=== PATIENT | female | born 1990 | race Caucasian/White ===

== ENCOUNTER 2017-10-06 12:12 | Emergency (ER) | payer BC ==
[2017-10-06 14:05] LABS: EGFR Non-African American 97.9 (>60)
[2017-10-06 14:28] LABS: ABS Basophils 0 10^3/ul (0-0.2); ABS Eosinophils 0.1 10^3/ul (0-0.6); ABS Lymphocytes 1.8 10^3/ul (1.0-4.8); ABS Monocytes 0.5 10^3/ul (0-0.8); ABS Neutrophils 5.7 10^3/ul (1.5-7.7); ABS Nucleated RBC 0 10^3/ul; Eosinophil % 0.9 % (0-6); Hematocrit 37 % (35-47); Hemoglobin 12.8 g/dl (12.0-16.0); Lymphocyte % 21.9 % (25-47); Mean Corpuscular HGB Conc 35 g/dl (31-36); Mean Corpuscular Hemoglobin 31 pg (27-31); Mean Corpuscular Volume 89 fL (80-97); Mean Platelet Volume 7.2 um3 (7.4-10.4); Nucleated Red Blood Cells % 0.1; Platelet Count 377 10^3/ul (150-450); Red Blood Count 4.11 10^6/ul (4.00-5.40); Red Cell Distribution Width 12 % (10.5-15); White Blood Count 8.1 10^3/ul (3.5-10.8)
--- NOTE | 2017-10-06 14:39 | RAD ---
HISTORY: assess cyst vs torsion, right-sided pain COMPARISONS: None TECHNIQUE: Multiple transverse and longitudinal ultrasound images were obtained of the pelvis using grayscale, color Doppler, and spectral Doppler imaging using the endovaginal transducer. FINDINGS: UTERUS: The uterus measures 6.8 x 3.5 x 4.4 cm. The uterus is normal in shape, size, contour, and echotexture. ENDOMETRIUM: The endometrial stripe is smooth. The endometrium measures 0.4 cm in thickness. CUL-DE-SAC: There is no free fluid within the cul-de-sac. RIGHT OVARY: The right ovary measures 3.2 x 1.8 x 2.5 cm. Normal arterial and venous waveforms are identifiable within the ovary on spectral Doppler imaging. LEFT OVARY: The left ovary measures 2.9 x 1.4 x 1.4 cm. Normal arterial and venous waveforms are identifiable within the ovary on spectral Doppler imaging. BLADDER: The bladder is not well visualized. OTHER: Also noted is a tubular, vermiform, hollow viscus with bowel mucosal signature consistent with the appendix in the right hemipelvis. This is hyperemic and slightly dilated measuring up to 0.8 cm in caliber. There is point tenderness associated with the appendix. IMPRESSION: 1. NO SONOGRAPHIC FEATURES OF TORSION. PLEASE NOTE THAT PARTIAL OR INTERMITTENT TORSION MAY BE SONOGRAPHICALLY NORMAL. 2. MILDLY DILATED, HYPEREMIC, APPENDIX ASSOCIATED WITH PAIN, CONCERNING FOR ACUTE APPENDICITIS IN THE CORRECT CLINICAL SETTING
[2017-10-06] MEDS ORDERED: Iohexol 300* (CONTRAST) 10 ML SDV IV ONE (14:51)
--- NOTE | 2017-10-06 14:55 | ED ---
Abdominal Pain/Female - HPI Summary HPI Summary: Patient is an otherwise healthy 27-year-old female presenting to the ED with a complaint of right lower quadrant pain 2-3 days. Denies any fevers, sweats, chills. Denies any nausea. One episode vomiting on Monday, the felt it was due to food. She denies any early satiety and continues to eat and drink well. She states she has been attempting to eat and drink last she is on a diet. She takes no medications, denies any allergies. Less food intake at 8 AM, last drink intake at 10 AM. Symptoms are aggravated with ambulation and direct pressure, alleviated with sitting forward slightly. No history of ovarian cysts. Pain is currently rated a 4 /10. Vital signs are stable on arrival. LMP 7 weeks ago as she recently transitioned from nexplanon to OCP. - History of Current Complaint Chief Complaint: EDAbdPain Stated Complaint: RIGHT ABD PAIN Time Seen by Provider: 10/06/17 12:21 Hx Obtained From: Patient ?: No Onset/Duration: Sudden Onset Timing: Constant Severity Initially: Mild Severity Currently: Mild Pain Intensity: 8 Pain Scale Used: 0-10 Numeric Location: Discrete At: RLQ Radiates: No Character: Cramping Aggravating Factor(s): Nothing Alleviating Factor(s): Nothing Associated Signs and Symptoms: Positive: Negative, Vomiting - 1 episode 4 days ago. Negative: Diaphoresis, Fever, Cough, Chest Pain, Blood in Stool, Urinary Symptoms, Decreased Appetite, Nausea - Risk Factors Ectopic Risk Factor: Negative Ovarian Torsion Risk Factor: Reproductive Age Allergies/Adverse Reactions: Allergies Allergy/AdvReac Type Severity Reaction Status Date / Time No Known Allergies Allergy Verified 10/06/17 12:32 Home Medications: Home Medications ALPRAZolam TAB* [Xanax TAB*] 0.25 mg PO Q6H PRN 10/06/17 [History Confirmed ] Multivitamins/Minerals TAB* [Theragran/minerals TAB*] 1 tab PO DAILY 10/06/17 [ History Confirmed 10/06/17] Norethindr/Eth Estradiol(Nf) [Lo Loestrin Fe (NF)] 1 tab PO DAILY 10/06/17 [ History Confirmed 10/06/17] PMH/Surg Hx/FS Hx/Imm Hx Previously Healthy: Yes Endocrine/Hematology History: Denies: Hx Diabetes Cardiovascular History: Denies: Hx Hypertension - Immunization History Hx Pertussis Vaccination: No Immunizations Up to Date: Unable to Obtain/Confirm Infectious Disease History: No Infectious Disease History: Denies: Traveled Outside the [place] in Last 30 Days - Social History Occupation: Employed Part-time Lives: With Family Alcohol Use: Occasionally Hx Substance Use: No Substance Use Type: Reports: None Hx Tobacco Use: No Smoking Status (MU): Never Smoked Tobacco Review of Systems - ROS Summary Review of Systems Summary: Constitutional: The patient denies fever, GARNETT, sweats or chills. HEENT: Head: The patient denies headaches or dizziness. Eyes: The patient denies diplopia, blurry vision, eye pain, eye discharge, photophobia. Throat: The patient denies sore throats or hoarseness. Cardiovascular: The patient denies chest pain, palpitations, syncope, night cramps, or orthostasis. Respiratory: The patient denies cough, sputum production, hemoptysis, dyspnea, wheezing. Gastrointestinal: The patient denies odynophagia, dysphagia, hematemesis, melenemesis. Endorses RLQ abdominal pain, denies nausea or vomiting. Denies constipation or diarrhea. Genitourinary: Patient denies dysuria, hematuria, or pyuria. Patient denies back pain. Denies vaginal discharge, vaginal bleeding. Denies other urinary symptoms. Muscles: The patient denies myalgia, strain or weakness. Joints: The patient denies arthralgia and/or arthritis. Neurologic: The patient denies headache, loss of consciousness, or seizure. Dermatologic: The patient denies hyperpigmentation, rash, or photosensitivity. Constitutional: Negative Negative: Fever, Chills, Fatigue, Skin Diaphoresis Negative: Palpitations, Chest Pain Negative: Shortness Of Breath, Cough Positive: Abdominal Pain - RLQ, Vomiting - 1 episode 4 days ago. Negative: Diarrhea, Nausea Genitourinary: Negative Positive: no symptoms reported, see HPI. Negative: burning, dysuria, discharge , frequency, flank pain Negative: Rash, Bruising Neurological: Negative All Other Systems Reviewed And Are Negative: Yes Physical Exam - Summary Physical Exam Summary: Appearance: WDW, comfortable, pleasant, alert Skin: Soft dry skin, no lesions. Nailbeds pink with no cyanosis or clubbing. No petechia noted. Eyes: FRANTZ, EOMI, Conjunctiva pink with no redness or exudates. Mouth: Dentition without lesions. Moist mucosa Neck: Full range of motion. Palpable thyroid. Trachea at midline. No lymphadenopathy. Pulm: Chest symmetrical expansion. No deformities on posterior chest wall. Lungs clear to auscultation and percussion, without adventitious sounds. CV: No JVD. No deformities on anterior chest wall. Heart sounds. RRR. Normal S1 and single S2. No S3, S4, rubs, or murmurs. Carotids 2+ bilaterally without bruits. . exam not performed GI: Bowel sounds WNL in all 4 quadrants. Pain to light palpation to RLQ without pain to other quadrants. Negative henson's, positive obturator, psoas not performed. Pain over Mcburney's point. Musculoskeletal: Flexion and extension of neck without limitations. ROM WNL in all extremities. No deformities noted. Pulses +2 bilaterally. Neuro: Motor strength is 5/5 in upper and lower extremities bilaterally. A&OX3 Psych: Logical, coherent Triage Information Reviewed: Yes Vital Signs On Initial Exam: Initial Vitals Temp Pulse Resp BP Pulse Ox 96.9 F 92 17 149/93 100 10/06/17 12:22 10/06/17 12:22 10/06/17 12:22 10/06/17 12:22 10/06/17 12:22 Vital Signs Reviewed: Yes Appearance: Positive: No Pain Distress, Well-Nourished Skin: Positive: Warm, Skin Color Reflects Adequate Perfusion Head/Face: Positive: Normal Head/Face Inspection Eyes: Positive: EOMI, FRANTZ, Conjunctiva Clear Neck: Positive: Supple, No Lymphadenopathy Respiratory/Lung Sounds: Positive: Clear to Auscultation, Breath Sounds Present Cardiovascular: Positive: Normal, Pulses are Symmetrical in both Upper and Lower Extremities Abdomen Description: Positive: Soft, McBurney's Point Tenderness Bowel Sounds: Positive: Present Musculoskeletal: Positive: Normal, Strength/ROM Intact Neurological: Positive: Sensory/Motor Intact, Alert, Oriented to Person Place, Time Psychiatric: Positive: Normal, Affect/Mood Appropriate AVPU Assessment: Alert Diagnostics - Vital Signs Vital Signs Temp Pulse Resp BP Pulse Ox 10/06/17 12:22 96.9 F 92 17 149/93 100 - Laboratory Lab Results: Lab Results 10/06/17 10/06/17 10/06/17 Range/Units 13:00 14:21 14:21 WBC 8.1 (3.5-10.8) 10^3/ul RBC 4.11 (4.00-5.40) 10^6/ul Hgb 12.8 (12.0-16.0) g/dl Hct 37 (35-47) % MCV 89 (80-97) fL MCH 31 (27-31) pg MCHC 35 (31-36) g/dl RDW 12 (10.5-15) % Plt Count 377 (150-450) 10^3/ul MPV 7.2 L (7.4-10.4) um3 Neut % (Auto) 70.3 (38-83) % Lymph % (Auto) 21.9 L (25-47) % [place] % (Auto) 6.3 (0-7) % Eos % (Auto) 0.9 (0-6) % Baso % (Auto) 0.6 (0-2) % Absolute Neuts (auto) 5.7 (1.5-7.7) 10^3/ul Absolute Lymphs (auto) 1.8 (1.0-4.8) 10^3/ul Absolute Monos (auto) 0.5 (0-0.8) 10^3/ul Absolute Eos (auto) 0.1 (0-0.6) 10^3/ul Absolute Basos (auto) 0 (0-0.2) 10^3/ul Absolute Nucleated RBC 0 10^3/ul Nucleated RBC % 0.1 Sodium 138 (135-145) mmol/L Potassium TNP Chloride 105 (101-111) mmol/L Carbon Dioxide 22 (22-32) mmol/L Anion Gap 11 (2-11) mmol/L BUN 11 (6-24) mg/dL Creatinine 0.72 (0.51-0.95) mg/dL Est GFR ( Amer) 118.5 (>60) Est GFR (Non-Af Amer) 97.9 (>60) BUN/Creatinine Ratio 15.3 (8-20) Glucose 86 (70-100) mg/dL Lactic Acid 1.0 (0.5-2.0) mmol/L Calcium 8.9 (8.6-10.3) mg/dL Total Bilirubin 0.50 (0.2-1.0) mg/dL AST TNP ALT 11 (7-52) U/L Alkaline Phosphatase 57 (34-104) U/L C-Reactive Protein 57.58 H (<8.01) mg/L Total Protein 7.1 (6.4-8.9) g/dL Albumin 4.0 (3.2-5.2) g/dL Globulin 3.1 (2-4) g/dL Albumin/Globulin Ratio 1.3 (1-3) Lipase < 10 L (11.0-82.0) U/L Beta HCG, Quant < 0.60 mIU/mL 10/06/17 Range/Units 14:21 WBC (3.5-10.8) 10^3/ul RBC (4.00-5.40) 10^6/ul Hgb (12.0-16.0) g/dl Hct (35-47) % MCV (80-97) fL MCH (27-31) pg MCHC (31-36) g/dl RDW (10.5-15) % Plt Count (150-450) 10^3/ul MPV (7.4-10.4) um3 Neut % (Auto) (38-83) % Lymph % (Auto) (25-47) % Greenwood % (Auto) (0-7) % Eos % (Auto) (0-6) % Baso % (Auto) (0-2) % Absolute Neuts (auto) (1.5-7.7) 10^3/ul Absolute Lymphs (auto) (1.0-4.8) 10^3/ul Absolute Monos (auto) (0-0.8) 10^3/ul Absolute Eos (auto) (0-0.6) 10^3/ul Absolute Basos (auto) (0-0.2) 10^3/ul Absolute Nucleated RBC 10^3/ul Nucleated RBC % Sodium (135-145) mmol/L Potassium TNP Chloride (101-111) mmol/L Carbon Dioxide (22-32) mmol/L Anion Gap (2-11) mmol/L BUN (6-24) mg/dL Creatinine (0.51-0.95) mg/dL Est GFR ( Amer) (>60) Est GFR (Non-Af Amer) (>60) BUN/Creatinine Ratio (8-20) Glucose (70-100) mg/dL Lactic Acid (0.5-2.0) mmol/L Calcium (8.6-10.3) mg/dL Total Bilirubin (0.2-1.0) mg/dL AST TNP ALT (7-52) U/L Alkaline Phosphatase (34-104) U/L C-Reactive Protein (<8.01) mg/L Total Protein (6.4-8.9) g/dL Albumin (3.2-5.2) g/dL Globulin (2-4) g/dL Albumin/Globulin Ratio (1-3) Lipase (11.0-82.0) U/L Beta HCG, Quant mIU/mL Result Diagrams: 10/06/17 14:21 10/06/17 14:21 Lab Statement: Any lab studies that have been ordered have been reviewed, and results considered in the medical decision making process. Abdominal Pain Fem Course/Dx - Course Course Of Treatment: During the course of treatment, the patient is evaluated for right lower quadrant pain. Labs are unremarkable except for an elevated CRP of 57.58. Normal white count. Vital signs stable on arrival. Denies any fevers, sweats, chills. She continues to eat and drink okay. Discussed treatment options with patient and she prefers to start with the transvaginal ultrasound to assess for any ovarian cysts or other pathologies. I have discussed with the patient that well we may start with a transvaginal ultrasound , we may need to CT the abdomen to assess for a possible appendicitis. On physical examination, positive Rovsing's, positive obturator, so as not performed. Pain over McBurney's point with light palpation. BMI >30 so according to protocol, CT abdomen/pelvis without contrast obtained. CT obtained which shows: Impression: The appendix is not clearly visualized although abnormal soft tissue is noted in the right adnexa. There is likely appendicitis according to ultrasound. Discussed case with . Dr. Hernández agrees to come see patient in the ED. Patient voices understanding that there is no definitive evidence of an appencidicitis and patient wishes to be DC'd home. She will call Dr. Hernández's office directly for any worsening pain or symptoms. She contines to be afebrile, VS stable and continues to voice 2/10 pain. - Diagnoses Differential Diagnosis: Positive: Appendicitis, Other - mesenteric adenitis, viral, adnexal mass, adnexal tenderness Provider Diagnoses: Right lower quadrant pain Is Visit Related: No - Provider Notifications Discussed Care Of Patient With: Ventura Hernández - Agrees to see patient in ED Discharge - Sign-Out/Discharge Documenting (check all that apply): Discharge/Admit/Transfer - Discharge Plan Condition: Stable Disposition: HOME Referrals: Ventura Hernández MD [Medical Doctor] - Maria D Dhillon NP [Primary Care Provider] - Additional Instructions: As discussed, if he develop any worsening symptoms, please call Dr. Hernández's office If you develop any fevers, sweats, chills, please follow-up as well - Billing Disposition and Condition Condition: STABLE Disposition: Home
--- NOTE | 2017-10-06 15:27 | RAD ---
Indication: Right lower quadrant pain. Contrast: Administered 125.3 ml of OMNIPAQUE 300 mg/ml CT of the abdomen and pelvis was performed after oral and IV contrast administration. Coronal and sagittal reconstructed images were obtained. The lung bases demonstrate no pleural fluid, nodules or masses. Heart is of normal size without evidence of pericardial effusion. Liver is normal in size. No focal lesions or intrahepatic ductal dilatation is noted. Gallbladder demonstrates no calcified gallstones. No pericholecystic fluid or wall thickening is noted. The spleen is normal in size. The pancreas demonstrates no mass or pancreatic duct dilatation. No adrenal lesions are noted. The kidneys demonstrate symmetric nephrograms without hydronephrosis. No retroperitoneal lymphadenopathy is noted. No dilated loops of bowel are noted. CT of the pelvis demonstrates no retroperitoneal or pelvic lymphadenopathy. The cecum is low-lying just above the urinary bladder. Terminal ileum is grossly unremarkable. No definite free fluid is noted in the cul-de-sac. Uterus and ovaries are unremarkable. The right adnexa is difficult to visualize with some areas of fluid noted. The corresponding structure resembling the appendix the ultrasound is not clearly identified although this may be adnexal tissue. IMPRESSION: The appendix is not clearly visualized although abnormal soft tissue is noted in the right adnexa. There is likely appendicitis according to ultrasound.
[2017-10-06 16:52] VITALS: BP 118/73
--- NOTE | 2017-10-06 17:52 | CONS ---
CC: Maria D Dhillon; [facility] SURGICAL CONSULTATION REPORT: DATE OF CONSULT: 10/06/17 HISTORY OF PRESENT ILLNESS: I was contacted by the emergency room to evaluate Ms. Perrin, a 27-yea r-old otherwise healthy female who presented to the emergency room with onset of abdominal pain that started yesterday. Pain is in the right lower quadrant. Workup included a transvaginal ultrasound, which is followed up with a CT scan with IV contrast only after there was a concern for possibility o f appendicitis. No appendix was seen on the CT scan, but the ultrasound was suggestive of a dilated hyperemic appendix. The patient describes onset of symptoms yesterday with pain focally located in the right lower quadra nt groin area. The patient denies any nausea or vomiting. No loss of appetite. No fevers or chills . No change in bowel habits. The patient is having normal bowel movements and denies any constipati on. Pain is nonradiating. It is worse when she walks, better when she lies still. The patient denie s any previous similar symptoms. PAST MEDICAL HISTORY: None. PAST SURGICAL HISTORY: No abdominal surgeries. MEDICATIONS: Include control. ALLERGIES: She has no known drug allergies. FAMILY HISTORY: Noncontributory. No history of appendicitis. No family history of ulcerative colit is or Crohn's disease. SOCIAL HISTORY: She is a nonsmoker. She is . She is employed. REVIEW OF SYSTEMS: No fevers or chills. No shortness of breath or chest pain. Appetite as described above. No nausea. No reflux. The patient denies any dysuria. No change in bowel habits. The pat ient recently had a Pap smear as a routine. She denies any vaginal discharge. She is not . She is morbidly obese. Denies any diabetes or other endocrine disorders. She has recently been try ing to exercise more and she and her partner have been working out in the gym significantly of late. PHYSICAL EXAM: She is afebrile at 96.9, blood pressure 149/93, and heart rate 92. Alert and oriented x3, in no apparent distress. Head, Ears, Eyes, Nose, and Throat: Normocephalic, atraumatic. Scler ae nonicteric. Mucous membranes are moist. Neck: No lymphadenopathy. Lungs: Clear to auscultatio n bilaterally. Abdomen: Soft, obese, tender on deep palpation in the right lower quadrant just to th e area superior to the groin on the right side. Pain extends to the midline. No overlying skin pickard ges. Negative Psoas sign. Negative Rovsing sign. DIAGNOSTIC STUDIES/LAB DATA: Labs reviewed, show a normal white count. No left shift. The patient does have elevated CRP on metabolic panel. The patient underwent a CT scan of the abdomen and pelvis. This was reviewed. Again, this is of IV c ontrast only. The appendix is not clearly visualized. There was a soft tissue density that appeared abnormal in the right deep pelvis, although this is difficult to visualize. There was mild free flu id. This was felt to be the corresponding structure that was thought to be the appendix on the ultra sound, although could not be clearly delineated from the adnexal structure. IMPRESSION: Right lower quadrant pain without any GI symptoms. Differential diagnosis does include appendicitis, likely early versus ruptured ovarian cyst or follicle versus viral versus musculoskelet al. I described to the patient our options of possible diagnostic laparoscopy to complete the workup as we are still unsure. The patient does have an Barriga score of 2 points, which puts her at unli cass appendicitis; however, the imaging is of interest and I did recommend laparoscopy to the patient and I did also talk of the alternatives of watchful waiting with a possible trip to the operating ro om for diagnostic laparoscopy in the next 24 to 48 hours if the patient continues to have pain or not es any GI symptoms or fever. After discussion and I had left the room for this purpose, the patient made the decision for watchful waiting with the anticipation of contacting me or one of my partners a t a later time if these symptoms should worsen or additional symptoms should present themselves. The patient is agreeable and I believe she understands the plan. I discussed the case with the ER bobby gonzalez and the patient is given the number of our service. [id number]/[facility] #: [id number]
== END 2017-10-06 16:51 | disposition home or self-care (01) ==
LOC: ED 12:12
DX: R10.31 Right lower quadrant pain (principal)
CPT/HCPCS: 36415; 74177; 76830; 80053; 83605; 83690; 84702; 85025; 85652; 86140; 99283; Q9967

== ENCOUNTER 2019-08-14 07:28 | Day surgery (SDC) | payer BC ==
[~2019-08-14 07:28] MED LIST: Buffered Lidocaine 1% SYRIN 1 ml INTRADERM ONE; DOXYcycline IV 200 MG in NS 250 mL *Pre-Op OBGYN IVPB ONE; Lactated Ringers 1000 ml BAG 1,000 ML IV SCH
[2019-08-14 08:49] LABS: Hematocrit 39 % (35-47); Hemoglobin 13.3 g/dL (12.0-16.0); Mean Corpuscular HGB Conc 34 g/dL (31-36); Mean Corpuscular Hemoglobin 31 pg (27-31); Mean Corpuscular Volume 90 fL (80-97); Mean Platelet Volume 6.8 fL (7.4-10.4); Platelet Count 445 10^3/uL (150-450); Red Blood Count 4.32 10^6 /uL (3.70-4.87); Red Cell Distribution Width 13 % (10-15); White Blood Count 6.5 10^3/uL (3.5-10.8)
[2019-08-14] MEDS ORDERED: Lidocaine 1% VIAL 10 MG/ML VIAL ONE (10:20)
[2019-08-14] MEDS ORDERED: Silver Nitrate/Potassium Nitr 1 PAK (1 PAK PER PATIENT) ONE (10:26)
[2019-08-14] MEDS ORDERED: fentaNYL 250 mcg/5 ml 50 MCG/ML 5 ml VIAL (250 MCG) ONE (10:40)
[2019-08-14] MEDS ORDERED: Midazolam 5 mg/5 ml VIAL 1 mg/ml 5 ml VIAL (5 mg) ONE (10:40)
[2019-08-14] MEDS ORDERED: Propofol 10 MG/ML 20 ML BTL ONE (11:01)
[2019-08-14] MEDS ORDERED: diPHENhydraMINE IV 50 MG/ML 1 ml VIAL (BENADRYL) IV PRN (11:28)
[2019-08-14] MEDS ORDERED: Ondansetron 4 mg VIAL 2 MG/ML 2 ml VIAL IV PRN (11:28)
[2019-08-14] MEDS ORDERED: Naloxone 0.4 mg VIAL 0.4 mg/ml 1 ml VIAL IV PRN (11:28)
[2019-08-14 13:01] VITALS: BP 115/82
== END 2019-08-14 14:11 | disposition home or self-care (01) ==
LOC: OR 07:28
PROVIDERS: ATTEND Obstetrics & Gynecology

== ENCOUNTER 2020-07-30 14:22 | Inpatient (IN) ==
[2020-07-30] MEDS ORDERED: Lactated Ringers 1000 ml BAG 1,000 ML IV ONE ×2 (15:03→16:52)
[2020-07-30] MEDS ORDERED: OBEPIDURAL 0 ML EPIDURAL ONE (16:05)
[2020-07-30 16:11] LABS: ABS Basophils 0.1 10^3/ul (0-0.2); ABS Eosinophils 0.1 10^3/ul (0-0.6); ABS Lymphocytes 1.7 10^3/ul (1.0-4.8); ABS Monocytes 0.6 10^3/ul (0-0.8); ABS Neutrophils 14.4 10^3/ul (1.5-7.7); Eosinophil % 0.3 %; Hematocrit 34 % (35-47); Hemoglobin 11.3 g/dL (12.0-16.0); Lymphocyte % 9.9 %; Mean Corpuscular HGB Conc 33 g/dL (31-36); Mean Corpuscular Hemoglobin 29 pg (27-31); Mean Corpuscular Volume 87 fL (80-97); Mean Platelet Volume 7.2 fL (7.4-10.4); Platelet Count 543 10^3/uL (150-450); Red Blood Count 3.95 10^6 /uL (3.70-4.87); Red Cell Distribution Width 14 % (10-15)
[2020-07-30] MEDS ORDERED: Bupivacaine 0.25% SDV PF 10 ML VIAL INJ ONE (16:28)
[2020-07-30] MEDS ORDERED: fentaNYL 100 mcg/2 ml 50 MCG/ML VIAL ONE (16:28)
[2020-07-30] MEDS ORDERED: Lactated Ringers 1000 ml BAG 500 ML IV PRN ×2 (16:52)
[2020-07-30] MEDS ORDERED: Sodium Citrate/Citric Acid LIQ 15 ML UDC PO PRN (16:52)
[2020-07-30] MEDS ORDERED: Phenylephrine 40 mcg/mL 10mL (400mcg) SYRINGE IV PUSH PRN (16:52)
[2020-07-30] MEDS: Phenylephrine 40 mcg/mL 10mL (400mcg) SYRINGE IV PUSH PRN ×2 (16:55→17:00)
[2020-07-30] MEDS ORDERED: OBEPIDURAL 250 ML EPIDURAL SCH (17:00)
[2020-07-30] MEDS ORDERED: Lactated Ringers 1000 ml BAG 1,000 ML IV SCH ×3 (17:00→19:00)
[2020-07-30] MEDS ORDERED: Oxytocin 10 UNITS/ML 1 ML VIAL IM ONE (18:39)
[2020-07-30] MEDS ORDERED: Witch Hazel PAD JAR TOPICAL PRN (18:39)
[2020-07-30] MEDS ORDERED: Dibucaine 1% OINT 28.35 GM TUBE PR PRN (18:39)
[2020-07-30] MEDS ORDERED: Lidocaine 1% VIAL 10 MG/ML VIAL ONE (21:00)
[2020-07-30 21:24] LABS: Urine Benzodiazepine Screen None Detected (None Detect); Urine Cannabinoids Screen None Detected (None Detect); Urine Opiates Screen None Detected (None Detect)
[2020-07-31 07:42] LABS: ABS Lymphocytes 2.5 10^3/ul (1.0-4.8); ABS Monocytes 1.4 10^3/ul (0-0.8); ABS Neutrophils 14.5 10^3/ul (1.5-7.7); Eosinophil % 0.2 %; Hematocrit 29 % (35-47); Hemoglobin 9.6 g/dL (12.0-16.0); Lymphocyte % 13.3 %; Mean Corpuscular HGB Conc 33 g/dL (31-36); Mean Corpuscular Hemoglobin 29 pg (27-31); Mean Corpuscular Volume 87 fL (80-97); Mean Platelet Volume 6.9 fL (7.4-10.4); Platelet Count 419 10^3/uL (150-450); Red Blood Count 3.33 10^6 /uL (3.70-4.87); Red Cell Distribution Width 15 % (10-15); White Blood Count 18.4 10^3/uL (3.5-10.8)
[2020-08-01 07:54] VITALS: BP 118/79
[2020-08-01] MEDS ORDERED: Varicella Virus Vaccine Live 0.5 ML VIAL SUBCUT ONE (09:00)
== END 2020-08-01 13:30 | disposition home or self-care (01) ==
LOC: MCHOBOUT 14:22 → MCHOB 15:00
PROVIDERS: ADMIT Midwife; ATTEND Midwife